=== PATIENT | female | born 1995 | race Caucasian/White ===

== ENCOUNTER 2017-04-10 17:14 | Emergency (ER) | payer BC ==
[2017-04-10 17:46] LABS: URINE APPEARANCE CLEAR; URINE BILIRUBIN NEGATIVE (NEGATIVE); URINE BLOOD NEGATIVE (NEGATIVE); URINE COLOR YELLOW; URINE GLUCOSE (UA) NEGATIVE (NEGATIVE); URINE KETONE NEGATIVE (NEGATIVE); URINE LEUKOCYTE ESTERASE NEGATIVE (NEGATIVE); URINE NITRITE NEGATIVE (NEGATIVE); URINE PROTEIN NEGATIVE (NEGATIVE); URINE UROBILINOGEN 0.2 E.U./dL (0.20 - 1.00)
--- NOTE | 2017-04-10 17:50 | Emergency Department Record ---
History of Present Illness - General Chief complaint: Female Urogenital Problem Stated complaint: THINKS SHE HAS VAGINAL INFECTION Time Seen by Provider: 04/10/17 17:44 Source: Patient Mode of Arrival: Ambulatory - History of Present Illness Initial comments: The patient complains of two days of vaginal discomfort, similar to when she had BV in the past. She states her vaginal is sore and has a foul odor. She is monogamous with her . No other STD history, no f,c,back pain. Slight abdominal discomfort intermittently. Onset/Timin -: Days(s) Severity: Mild Severity scale (1-10): 7 Quality: Burning, Cramping Consistency: Constant Improves with: Urination Worsens with: Bathing Patient : No LMP Date: 04/03/17 Gestational Age (wks) based on LMP: 1 - Related Data Sexually active: Yes Previous Rx's Medication Instructions Recorded Metronidazole [Flagyl] 500 mg PO BID #13 tablet 04/10/17 Allergies Allergy/AdvReac Type Severity Reaction Status Date / Time No Known Drug Allergies Allergy Verified 04/10/17 17:26 Travel Screening - Travel/Exposure Within Last 30 Days Have you traveled within the last 30 days?: No - Travel/Exposure Within Last Year Have you traveled outside the [place] in the last year?: No - Additonal Travel Details Have you been exposed to anyone with a communicable illness?: No - Travel Symptoms Symptom Screening: None Review of Systems Reviewed: No additional complaints except as noted below Constitutional: Reports: As per HPI. Denies: Chills, Fever, Malaise, Night sweats, Weakness, Weight change Eyes: Reports: As per HPI. Denies: Eye discharge, Eye pain, Photophobia, Vision change ENT: Reports: As per HPI. Denies: Congestion, Dental pain, Ear pain, Epistaxis , Hearing loss, Throat pain Respiratory: Reports: As per HPI. Denies: Cough, Dyspnea, Hemoptysis, Stridor, Wheezes Cardiovascular: Reports: As per HPI. Denies: Arrhythmia, Chest pain, Dyspnea on exertion, Edema, Murmurs, Orthopnea, Palpitations, Paroxysmal nocturnal dyspnea, Rheumatic Fever, Syncope Endocrine: Reports: As per HPI. Denies: Fatigue, Heat or cold intolerance, Polydipsia, Polyuria Gastrointestinal: Reports: As per HPI. Denies: Abdominal pain, Constipation, Diarrhea, Hematemesis, Hematochezia, Melena, Nausea, Vomiting Genitourinary: Reports: As per HPI. Denies: Abnormal menses, Discharge, Dyspareunia, Dysuria, Frequency, Hematuria, Incontinence, Retention, Urgency Musculoskeletal: Reports: As per HPI. Denies: Arthralgia, Back pain, Gout, Joint swelling, Myalgia, Neck pain Skin: Reports: As per HPI. Denies: Bruising, Change in color, Change in hair/ nails, Lesions, Pruritus, Rash Neurological: Reports: As per HPI. Denies: Abnormal gait, Confusion, Headache, Numbness, Paresthesias, Seizure, Tingling, Tremors, Vertigo, Weakness Psychiatric: Reports: As per HPI. Denies: Anxiety, Auditory hallucinations, Depression, Homicidal thoughts, Suicidal thoughts, Visual hallucinations Hematological/Lymphatic: Reports: As per HPI. Denies: Anemia, Blood Clots, Easy bleeding, Easy bruising, Swollen glands Past Medical History - SOCIAL HISTORY Smoking Status: Never smoker Alcohol Use: Rare Drug Use: None - RESPIRATORY Hx Respiratory Disorders: No - CARDIOVASCULAR Hx Cardio Disorders: No - NEURO Hx Neuro Disorders: No - GI Hx GI Disorders: No - Hx Genitourinary Disorders: No - ENDOCRINE Hx Endocrine Disorders: No - MUSCULOSKELETAL Hx Musculoskeletal Disorders: No - PSYCH Hx Psych Problems: No - HEMATOLOGY/ONCOLOGY Hx Hematology/Oncology Disorders: No Family Medical History Any Significant Family History?: No Physical Exam - General General Appearance: Alert, Oriented x3, Cooperative, No acute distress - Head Head exam: Normal inspection - Eye Eye exam: Normal appearance, PERRL Pupils: Normal accommodation - ENT ENT exam: Normal exam, Mucous membranes moist, Normal external ear exam, Normal orophraynx, TM's normal bilaterally Ear exam: Normal external inspection. negative: External canal tenderness Nasal Exam: Normal inspection. negative: Discharge, Sinus tenderness Mouth exam: Normal external inspection, Tongue normal Teeth exam: Normal inspection. negative: Dental caries Throat exam: Normal inspection. negative: Tonsillar erythema, Tonsillar exudate - Neck Neck exam: Normal inspection, Full ROM. negative: Tenderness - Respiratory Respiratory exam: Normal lung sounds bilaterally. negative: Respiratory distress - Cardiovascular Cardiovascular Exam: Regular rate, Normal rhythm, Normal heart sounds - GI/Abdominal GI/Abdominal exam: Soft, Normal bowel sounds. negative: Tenderness - Rectal Rectal exam: Deferred - exam: Adnexal tenderness (L) (mild), Normal external exam (with a few chronic tiny warts), Normal speculum exam, Vaginal erythema. negative: Cervical discharge, cervical motion tenderness, Vaginal bleeding - Extremities Extremities exam: Normal inspection, Full ROM, Normal capillary refill. negative: Tenderness - Back Back exam: Reports: Normal inspection, Full ROM. Denies: Muscle spasm, Rash noted, Tenderness - Neurological Neurological exam: Alert, Normal gait, Oriented X3, Reflexes normal - Psychiatric Psychiatric exam: Normal affect, Normal mood - Skin Skin exam: Dry, Intact, Normal color, Warm Course Vital Signs 04/10/17 17:18 Temperature 98.3 F Pulse Rate 85 Respiratory 16 Rate Blood Pressure 132/84 Pulse Ox 98 Medical Decision Making - Data Complexity MDM Data: Labs Ordered and/or Reviewed (+clue cells, UA neg, HCG neg.) Disposition Disposition: Discharge Clinical Impression: Vaginitis Qualifiers: Chronicity: acute Qualified Code(s): N76.0 - Acute vaginitis Disposition: Home, Self-Care Condition: (1) Good Instructions: Bacterial Vaginosis (ED) Additional Instructions: Flagyl 500 mg twice daily for 7 days. No alcohol with this medicine. Follow up with PCP after completion of antibiotics for recheck. Prescriptions: Metronidazole [Flagyl] 500 mg PO BID #13 tablet Quality - Quality Measures Quality Measures: N/A - Blood Pressure Screening Does Patient Have Any of the Following: No Blood Pressure Classification: Pre-Hypertensive BP Reading Systolic Measurement: 132 Diastolic Measurement: 84 Screening for High Blood Pressure: < Pre-Hypertensive BP, F/U Documented > [ G8950] Pre-Hypertensive Follow-up Interventions: Follow-up with rescreen every year.
[2017-04-10 17:56] LABS: HCG,QUALITATIVE URINE NEGATIVE (NEGATIVE)
[2017-04-10] MEDS ORDERED: CEFTRIAXONE 250 MG VIAL IM ONE (18:47)
[2017-04-10] MEDS ORDERED: METRONIDAZOLE 250 MG TABLET PO ONE (18:47)
[2017-04-10] MEDS ORDERED: AZITHROMYCIN 500 MG TABLET PO ONE (18:47)
[2017-04-11 01:14] LABS: GC SPECIMEN TYPE Vaginal
== END 2017-04-10 19:27 | disposition home or self-care (01) ==
LOC: ER 17:14
DX: N76.0 Acute vaginitis (principal)
CPT/HCPCS: 81003; 81025; 87210; 96372; 99284

== ENCOUNTER 2018-02-19 18:12 | Emergency (ER) | payer BC ==
[2018-02-19] MEDS ORDERED: OFLOXACIN 0.3% 5 ML OPTH SOLN OPTH ONE (18:35)
--- NOTE | 2018-02-19 18:35 | Emergency Department Record ---
History of Present Illness - General Chief complaint: Eye Problem Stated complaint: THINKS SHE HAS PINK EYE Time Seen by Provider: 02/19/18 18:29 Source: Patient Mode of Arrival: Ambulatory Limitations: No limitations - History of Present Illness Initial comments: Pt with 2 days of red itching swollen eye. No contacts, no eye mackup, no trauma, no pain, no vision change. No exposure to kids or infection. Onset/Timin -: Days(s) Onset Description: Gradual, Awoke with symptoms, Other Location: Left eye Eye Symptoms: Burning, Itching Consistency: Constant Treatments Prior to Arrival: OTC eye drops - Related Data Visual acuity (L) = 20/: 25 Visual acuity (R) = 20/: 25 Home Medications Medication Instructions Recorded Confirmed Last Taken No Home Med [NO HOME MEDS] 02/19/18 02/19/18 Unknown Allergies Allergy/AdvReac Type Severity Reaction Status Date / Time No Known Drug Allergies Allergy Verified 02/19/18 18:23 Travel Screening - Travel/Exposure Within Last 30 Days Have you traveled within the last 30 days?: No - Travel/Exposure Within Last Year Have you traveled outside the [place] in the last year?: No - Additonal Travel Details Have you been exposed to anyone with a communicable illness?: No - Travel Symptoms Symptom Screening: None Review of Systems Constitutional: Denies: Chills, Fever Eyes: Reports: As per HPI. Denies: Photophobia, Vision change ENT: Denies: Congestion, Dental pain Respiratory: Denies: Cough, Dyspnea Cardiovascular: Denies: Arrhythmia Endocrine: Denies: Fatigue Gastrointestinal: Denies: Abdominal pain Skin: Denies: Bruising, Rash Neurological: Denies: Abnormal gait, Headache, Vertigo Psychiatric: Denies: Anxiety Hematological/Lymphatic: Denies: Anemia Past Medical History - SOCIAL HISTORY Smoking Status: Current every day smoker Alcohol Use: Rare Drug Use: None - RESPIRATORY Hx Respiratory Disorders: No - CARDIOVASCULAR Hx Cardio Disorders: No - NEURO Hx Neuro Disorders: No - GI Hx GI Disorders: No - Hx Genitourinary Disorders: No - ENDOCRINE Hx Endocrine Disorders: No - MUSCULOSKELETAL Hx Musculoskeletal Disorders: No - PSYCH Hx Psych Problems: No - HEMATOLOGY/ONCOLOGY Hx Hematology/Oncology Disorders: No Family Medical History Any Significant Family History?: No Physical Exam - General General Appearance: Alert, Oriented x3, Cooperative, No acute distress - Head Head exam: Atraumatic - Eye Eye exam: PERRL, Conjunctival injection, EOMI. negative: Nystagmus, Periorbital swelling, Periorbital tenderness, Scleral icterus (no crusting. Anterior chamber clear, no pain with exam light. ) - ENT ENT exam: Normal exam, Mucous membranes moist, Normal external ear exam, Normal orophraynx, TM's normal bilaterally - Neck Neck exam: Normal inspection, Full ROM. negative: Tenderness - Respiratory Respiratory exam: Normal lung sounds bilaterally. negative: Respiratory distress - Cardiovascular Cardiovascular Exam: Regular rate, Normal rhythm. negative: Tachycardia - GI/Abdominal GI/Abdominal exam: Soft, Normal bowel sounds. negative: Tenderness - Extremities Extremities exam: Normal inspection - Back Back exam: Reports: Normal inspection - Neurological Neurological exam: Alert, Normal gait, Oriented X3 - Psychiatric Psychiatric exam: Normal affect - Skin Skin exam: Normal color. negative: Rash Course Vital Signs 02/19/18 18:15 Temperature 98.5 F Pulse Rate 81 Respiratory 16 Rate Blood Pressure 137/82 Pulse Ox 100 - Reevaluation(s) Reevaluation #1: 02/19/18 18:41 20/25 vision OS and OD. No trauma. Discussed plan. agrees. Disposition Disposition: Discharge Clinical Impression: Conjunctivitis Disposition: Home, Self-Care Condition: (1) Good Instructions: Conjunctivitis (ED) Additional Instructions: Use Tobramcyin eye drops 2 drops every 4 hours while awake until clear. Caution with hand washing and contacts. Quality - Quality Measures Quality Measures: N/A - Blood Pressure Screening Does Patient Have Any of the Following: No Blood Pressure Classification: Pre-Hypertensive BP Reading Systolic Measurement: 137 Diastolic Measurement: 82 Screening for High Blood Pressure: < Pre-Hypertensive BP, F/U Documented > [ G8950] Pre-Hypertensive Follow-up Interventions: Follow-up with rescreen every year.
== END 2018-02-19 18:49 | disposition home or self-care (01) ==
LOC: ER 18:12
DX: H10.32 Unspecified acute conjunctivitis, left eye (principal); F17.210 Nicotine dependence, cigarettes, uncomplicated
CPT/HCPCS: 99282

== ENCOUNTER 2018-02-21 10:09 | Emergency (ER) | payer BC ==
--- NOTE | 2018-02-21 10:38 | Emergency Department Record ---
History of Present Illness - General Chief complaint: Eye Problem Stated complaint: EYE INFECTION Time Seen by Provider: 02/21/18 10:21 Source: Patient, RN notes reviewed Mode of Arrival: Ambulatory - History of Present Illness Initial comments: rechecked the viual acuity of the left eye and it was 20/25 with two mistakes, redness of conjunctivea and upper eyelid is swollen and PERRLA EOMI eye discharge and she is on ofloxacin 2 drops every 4 hours for 2 days . No contact lense use Onset/Timin -: Days(s) Location: Left eye Place: Home If Injury: None Eye Symptoms: Blurry vision, Redness Severity: Mild Associated Symptoms: None Treatments Prior to Arrival: None - Related Data Visual acuity (L) = 20/: 50 Visual acuity (R) = 20/: 20 With correction: No Home Medications Medication Instructions Recorded Confirmed Last Taken Ofloxacin 5 ml OT Q4H 02/21/18 02/21/18 Unknown Previous Rx's Medication Instructions Recorded Sulfacetamide Sodium [Bleph-10] 1 - 2 drop AFFEYE QID #5 ml 02/21/18 Allergies Allergy/AdvReac Type Severity Reaction Status Date / Time No Known Drug Allergies Allergy Verified 02/21/18 10:17 Travel Screening - Travel/Exposure Within Last 30 Days Have you traveled within the last 30 days?: No Review of Systems Reviewed: No additional complaints except as noted below Constitutional: Reports: As per HPI. Denies: Chills, Fever, Malaise, Night sweats, Weakness, Weight change Eyes: Reports: As per HPI, Eye discharge. Denies: Eye pain, Photophobia, Vision change ENT: Reports: As per HPI. Denies: Congestion, Dental pain, Ear pain, Epistaxis , Hearing loss, Throat pain Respiratory: Reports: As per HPI. Denies: Cough, Dyspnea, Hemoptysis, Stridor, Wheezes Cardiovascular: Reports: As per HPI. Denies: Arrhythmia, Chest pain, Dyspnea on exertion, Edema, Murmurs, Orthopnea, Palpitations, Paroxysmal nocturnal dyspnea, Rheumatic Fever, Syncope Endocrine: Reports: As per HPI. Denies: Fatigue, Heat or cold intolerance, Polydipsia, Polyuria Gastrointestinal: Reports: As per HPI. Denies: Abdominal pain, Constipation, Diarrhea, Hematemesis, Hematochezia, Melena, Nausea, Vomiting Genitourinary: Reports: As per HPI. Denies: Abnormal menses, Discharge, Dyspareunia, Dysuria, Frequency, Hematuria, Incontinence, Retention, Urgency Musculoskeletal: Reports: As per HPI. Denies: Arthralgia, Back pain, Gout, Joint swelling, Myalgia, Neck pain Skin: Reports: As per HPI. Denies: Bruising, Change in color, Change in hair/ nails, Lesions, Pruritus, Rash Neurological: Reports: As per HPI. Denies: Abnormal gait, Confusion, Headache, Numbness, Paresthesias, Seizure, Tingling, Tremors, Vertigo, Weakness Psychiatric: Reports: As per HPI. Denies: Anxiety, Auditory hallucinations, Depression, Homicidal thoughts, Suicidal thoughts, Visual hallucinations Hematological/Lymphatic: Reports: As per HPI. Denies: Anemia, Blood Clots, Easy bleeding, Easy bruising, Swollen glands Past Medical History - SOCIAL HISTORY Smoking Status: Current every day smoker Alcohol Use: None Drug Use: None - RESPIRATORY Hx Respiratory Disorders: No - CARDIOVASCULAR Hx Cardio Disorders: No - NEURO Hx Neuro Disorders: No - GI Hx GI Disorders: No - Hx Genitourinary Disorders: No - ENDOCRINE Hx Endocrine Disorders: No - MUSCULOSKELETAL Hx Musculoskeletal Disorders: No - PSYCH Hx Psych Problems: No - HEMATOLOGY/ONCOLOGY Hx Hematology/Oncology Disorders: No Family Medical History Any Significant Family History?: No Physical Exam - General General Appearance: Alert, Oriented x3, Cooperative, No acute distress - Head Head exam: Normal inspection - Eye Eye exam: PERRL, Conjunctival injection, Periorbital swelling Pupils: Normal accommodation Visual acuity (L) = 20/: 25 With correction: No - ENT ENT exam: Normal exam, Mucous membranes moist, Normal external ear exam, Normal orophraynx, TM's normal bilaterally Ear exam: Normal external inspection. negative: External canal tenderness Nasal Exam: Normal inspection. negative: Discharge, Sinus tenderness Mouth exam: Normal external inspection, Tongue normal Teeth exam: Normal inspection. negative: Dental caries Throat exam: Normal inspection. negative: Tonsillar erythema, Tonsillar exudate - Neck Neck exam: Normal inspection, Full ROM. negative: Tenderness - Respiratory Respiratory exam: Normal lung sounds bilaterally. negative: Respiratory distress - Cardiovascular Cardiovascular Exam: Regular rate, Normal rhythm, Normal heart sounds - GI/Abdominal GI/Abdominal exam: Soft, Normal bowel sounds. negative: Tenderness - Rectal Rectal exam: Deferred - exam: Deferred - Extremities Extremities exam: Normal inspection, Full ROM, Normal capillary refill. negative: Tenderness - Back Back exam: Reports: Normal inspection, Full ROM. Denies: Muscle spasm, Rash noted, Tenderness - Neurological Neurological exam: Alert, Normal gait, Oriented X3, Reflexes normal - Psychiatric Psychiatric exam: Normal affect, Normal mood - Skin Skin exam: Dry, Intact, Normal color, Warm Course Vital Signs 02/21/18 10:13 Temperature 98.7 F Pulse Rate 97 H Respiratory 18 Rate Blood Pressure 115/75 Pulse Ox 98 Disposition Clinical Impression: Conjunctivitis Qualifiers: Conjunctivitis type: acute Acute conjunctivitis type: bacterial Laterality: left Qualified Code(s): H10.32 - Unspecified acute conjunctivitis, left eye Disposition: Home, Self-Care Condition: (1) Good Additional Instructions: warm compresses four times aday follow up with Dr Hernández call his office tomorrow for evaluation [phone] Prescriptions: Sulfacetamide Sodium [Bleph-10] 1 - 2 drop AFFEYE QID #5 ml Time of Disposition: 10:45 Quality - Quality Measures Quality Measures: N/A - Blood Pressure Screening Does Patient Have Any of the Following: No Blood Pressure Classification: Normal BP Reading Systolic Measurement: 115 Diastolic Measurement: 75 Screening for High Blood Pressure: < Normal BP, F/U Not Required > [G8783]
== END 2018-02-21 10:51 | disposition home or self-care (01) ==
LOC: ER 10:09
DX: H10.32 Unspecified acute conjunctivitis, left eye (principal); F17.210 Nicotine dependence, cigarettes, uncomplicated
CPT/HCPCS: 99282

== ENCOUNTER 2018-12-06 19:54 | Emergency (ER) | payer BC ==
[2018-12-06] MEDS ORDERED: KETOROLAC 30 MG/ML VIAL IVP ONE (20:22)
--- NOTE | 2018-12-06 20:26 | Emergency Department Record ---
History of Present Illness - General Chief Complaint: Abdominal Pain Stated Complaint: ABD PAIN Time Seen by Provider: 12/06/18 19:57 Source: Patient Mode of Arrival: Ambulatory Limitations: No limitations - History of Present Illness Initial Comments: 23 yo female presents to ED for evaluation of diffuse abdominal pain symptoms that began 2 days ago with the onset of her menses. Jonna reports that she saw her PCP diane for her symptoms, underwent pelvic examination and was referred to the ED for possible "uterine infection". Patient denies fevers, chills, nausea, vomiting, or change in stools. Patient is currently on her menses at this time, reports pain with tampon use this afternoon, denies vaginal discharge symptoms. Patient is sexually active in a monogamous relationship. Patient denies health problems at her baseline. MD Complaint: Abdominal pain Onset/Timin -: Days(s) Location: Diffuse Radiation: None Migration to: No migration Severity: Moderate Severity scale (1-10): 6 Quality: Stabbing Consistency: Constant Improves With: Other Worsens With: Other Associated Symptoms: Denies other symptoms - Related Data LMP (females 10-50): This week Home Medications Medication Instructions Recorded Confirmed Last Taken No Home Med [NO HOME MEDS] 12/06/18 12/06/18 Unknown Allergies Allergy/AdvReac Type Severity Reaction Status Date / Time No Known Drug Allergies Allergy Verified 02/21/18 10:17 Travel Screening - Travel/Exposure Within Last 30 Days Have you traveled within the last 30 days?: No - Travel/Exposure Within Last Year Have you traveled outside the [place] in the last year?: No - Additonal Travel Details Have you been exposed to anyone with a communicable illness?: No - Travel Symptoms Symptom Screening: None Review of Systems Constitutional: Denies: Chills, Fever, Malaise, Night sweats Eyes: Denies: Eye discharge, Eye pain ENT: Denies: Congestion, Ear pain, Epistaxis Respiratory: Denies: Cough, Dyspnea Cardiovascular: Denies: Chest pain, Dyspnea on exertion Endocrine: Denies: Fatigue, Heat or cold intolerance Gastrointestinal: Reports: Abdominal pain. Denies: Nausea, Vomiting Genitourinary: Denies: Incontinence, Retention Musculoskeletal: Denies: Arthralgia, Back pain Skin: Denies: Bruising, Change in color Neurological: Denies: Abnormal gait, Confusion, Headache, Seizure Psychiatric: Denies: Anxiety Hematological/Lymphatic: Denies: Anemia, Blood Clots Past Medical History - SOCIAL HISTORY Smoking Status: Current every day smoker - RESPIRATORY Hx Respiratory Disorders: No - CARDIOVASCULAR Hx Cardio Disorders: No - NEURO Hx Neuro Disorders: No - GI Hx GI Disorders: No - Hx Genitourinary Disorders: No - ENDOCRINE Hx Endocrine Disorders: No - MUSCULOSKELETAL Hx Musculoskeletal Disorders: No - PSYCH Hx Psych Problems: No - HEMATOLOGY/ONCOLOGY Hx Hematology/Oncology Disorders: No Family Medical History Any Significant Family History?: No Physical Exam - General General Appearance: Alert, Oriented x3, Cooperative, Moderate distress, Other (Appears to be resting comfortably, pain increases with palpation of the abdomen.) Limitations: No limitations - Head Head exam: Atraumatic, Normocephalic, Normal inspection Head exam detail: negative: Abrasion, Contusion, Burt's sign, General tenderness, Hematoma, Laceration - Eye Eye exam: Normal appearance. negative: Conjunctival injection, Periorbital swelling, Periorbital tenderness, Scleral icterus - ENT Ear exam: negative: Auricular hematoma, Auricular trauma Nasal Exam: negative: Active bleeding, Discharge, Dried blood, Foreign body Mouth exam: negative: Drooling, Laceration, Muffled voice, Tongue elevation - Neck Neck exam: Normal inspection. negative: Meningismus, Tenderness - Respiratory Respiratory exam: Normal lung sounds bilaterally. negative: Rales, Respiratory distress, Rhonchi, Stridor - Cardiovascular Cardiovascular Exam: Regular rate, Normal rhythm, Normal heart sounds - GI/Abdominal GI/Abdominal exam: Soft, Tenderness (Diffuse TTP on examination, no rebound, no guarding symptoms are present.). negative: Rebound, Rigid - Rectal Rectal exam: Deferred - exam: Deferred - Extremities Extremities exam: Normal inspection. negative: Pedal edema, Tenderness - Back Back exam: Denies: CVA tenderness (R), CVA tenderness (L) - Neurological Neurological exam: Alert, Normal gait, Oriented X3 - Psychiatric Psychiatric exam: Normal affect, Normal mood - Skin Skin exam: Normal color. negative: Abrasion Type of lesion: negative: abrasion Course Vital Signs 12/06/18 20:00 Temperature 99.0 F Pulse Rate 88 Respiratory 18 Rate Blood Pressure 127/108 Pulse Ox 98 - Reevaluation(s) Reevaluation #1: 12/06/18 21:16 Laboratory studies were reviewed and appear grossly unremarkable for an acute process. CT Abdomen and Pelvis with IV Contrast: No acute process 1 mm non-obstructing calculus right kidney Normal appendix Patient was updated on all results, reports that she is resting comfortably at this time. Discussed transfer for pelvic US tonight, patient declined stating that she would prefer to return in the morning for pelvic US. Patient denies any abnormal vaginal discharge symptoms, no clinical evidence for endometritis or TOA based on the patient's history, examination, and testing performed in the ED this evening. No clinical evidence for ovarian torsion on examination as well. Patient declined pelvic examination at this time given recent pelvic exam 4 days ago and the absence of PID symptoms. Patient will return to ED tomorrow morning for US examination of the pelvis. Medical Decision Making - Lab Data Result diagrams: 12/06/18 20:30 12/06/18 20:30 Disposition Disposition: Discharge Clinical Impression: Abdominal pain Qualifiers: Abdominal location: unspecified location Qualified Code(s): R10.9 - Unspecified abdominal pain Disposition: Home, Self-Care Condition: (2) Stable Instructions: Abdominal Pain (ED) Additional Instructions: Return to ED by 6:45 tomorrow morning for US evaluation of the pelvis. Levsin as directed. Follow-up with your family doctor in 3-5 days as directed. Forms: Patient Portal Access Time of Disposition: 21:27 Quality - Quality Measures Quality Measures: N/A - Blood Pressure Screening Does Patient Have Any of the Following: No Blood Pressure Classification: Hypertensive Reading Systolic Measurement: 127 Diastolic Measurement: 108 Screening for High Blood Pressure: < First Hypertensive BP, F/U Documented > [G8950] First Hypertensive Follow-up Interventions: Referral to alternative/primary care provider.
[2018-12-06] MEDS ORDERED: 0.9 % SODIUM CHLORIDE 1000ML 1,000 ML IV SCH (20:30)
[2018-12-06 20:48] LABS: ABSOLUTE NEUTROPHIL COUNT 4.42; BASO % 0.2 % (0-6); EOS % 3.2 % (0-6); GRAN % 53.8 % (47-80); HEMATOCRIT 37.4 % (35.0-47.0); HEMOGLOBIN 12.6 gm/dl (11.6-16.0); LYMPH % 35.9 % (16-45); MEAN CELL VOLUME 89.5 fl (81-97); MEAN CORPUSCULAR HEMOGLOBIN 30.1 pg (27-33); MEAN CORPUSCULAR HGB CONC 33.7 g/dl (32-36); MONO % 6.9 % (0-9); PLATELET COUNT 291 K/uL (130-400); RED BLOOD COUNT 4.18 M/uL (3.80-5.40); RED CELL DISTRIBUTION WIDTH 12.3 % (11.5-14.5); WHITE BLOOD COUNT W/O DIFF 8.2 K/uL (4.2-12.2)
[2018-12-06 20:56] LABS: URINE APPEARANCE CLEAR; URINE BILIRUBIN NEGATIVE (NEGATIVE); URINE BLOOD MODERATE (NEGATIVE); URINE COLOR YELLOW; URINE GLUCOSE (UA) NEGATIVE (NEGATIVE); URINE KETONE NEGATIVE (NEGATIVE); URINE LEUKOCYTE ESTERASE NEGATIVE (NEGATIVE); URINE NITRITE NEGATIVE (NEGATIVE); URINE PROTEIN NEGATIVE (NEGATIVE)
[2018-12-06 21:04] LABS: HCG,QUALITATIVE URINE NEGATIVE (NEGATIVE); URINE WBC NONE SEEN (0-2/hpf)
[2018-12-06 21:07] LABS: BLOOD UREA NITROGEN 12 mg/dL (6-20); CREATININE 0.6 mg/dL (0.5-0.9); EST GLOMERULAR FILTRATION RATE > 60 mL/min
[2018-12-06 21:08] LABS: LIPASE 21 U/L (13-60); TOTAL PROTEIN 6.6 g/dL (6.6-8.7)
[2018-12-06 21:10] LABS: GLUCOSE,RANDOM 101 mg/dL (74-109)
[2018-12-06 21:13] LABS: ALB/GLOB RATIO 1.9 (1.1-1.8); ALBUMIN 4.3 g/dL (4.0-5.0); ALKALINE PHOSPHATASE 71 U/L (35-104); ALT/SGPT 10 U/L (<33); AST/SGOT 10 U/L (10.0-35.0)
[2018-12-06] MEDS ORDERED: HYOSCYAMINE SULFATE ODT 0.125 MG TAB.SUBL SL ONE (21:27)
--- NOTE | 2018-12-07 13:37 | CT SCAN REPORT ---
EXAM: CT SCAN OF THE ABDOMEN AND PELVIS WITH CONTRAST HISTORY: MID TO LOWER ABDOMINAL PAIN FOR THE PAST TWO DAYS. TECHNIQUE: Standard CT imaging of the abdomen and pelvis was performed with intravenous contrast. 100 ml of Omnipaque 300 were administered. Additional coronal and sagittal reformatted images were also performed. Comparison: None. FINDINGS: The lung bases are clear. The liver, gallbladder, biliary tree, pancreas, spleen, and adrenal glands are normal. There are two tiny cortical cysts within the right kidney. A 1 mm punctate nonobstructing stone is present at the lower pole of the right kidney. There is no obstructing calculus or hydronephrosis. The kidneys and ureters are otherwise normal. The aorta is normal in caliber. There is no retroperitoneal lymphadenopathy. The large and small bowel loops including the appendix are normal. The stomach is unremarkable. There is no pneumoperitoneum or ascites. Small functional follicles are present within both ovaries. There is no adnexal mass. The uterus is unremarkable. The urinary bladder is normal. The abdominal wall and skeletal structures are normal. IMPRESSION: 1. NO ACUTE INTRAABDOMINAL PATHOLOGY. THE APPENDIX IS NORMAL. 2. 1 MM NONOBSTRUCTING STONE AT THE INFERIOR POLE OF THE RIGHT KIDNEY. 3. TINY CORTICAL CYSTS WITHIN THE RIGHT KIDNEY. JOB NUMBER: [id number] MTDD
== END 2018-12-06 21:39 | disposition home or self-care (01) ==
LOC: ER 19:54
DX: R10.9 Unspecified abdominal pain (principal); N20.0 Calculus of kidney
CPT/HCPCS: 99285; 96374; 99284; 83690; 85025; 80053; 81001; 81025; 74177; Q9967; J1980; J1885; J7030

== ENCOUNTER 2018-12-07 06:43 | Emergency (ER) | payer BC ==
--- NOTE | 2018-12-07 06:55 | Emergency Department Record ---
History of Present Illness - General Chief Complaint: Abdominal Pain Stated Complaint: ABD PAIN, ULTRASOUND Time Seen by Provider: 12/07/18 06:45 Source: Patient Mode of Arrival: Ambulatory Limitations: No limitations - History of Present Illness Initial Comments: 23 yo female presents to ED for re-evaluation of diffuse abdominal pain symptoms for the past 2-3 days. Patient was seen and evaluated last evening, laboratory studies and CT Abdomen and Pelvis were grossly unremarkable for an acute process, patient was asked to return to the ED for US evaluation this morning. Patient denies fevers, chills, nausea, vomiting, or change in stools. Patient does report that she is currently on her menses. MD Complaint: Abdominal pain Onset/Timin -: Days(s) Location: Diffuse Radiation: None Migration to: No migration Severity: Moderate Quality: Aching Consistency: Constant Improves With: Nothing Worsens With: Nothing Associated Symptoms: Denies other symptoms - Related Data Patient : No Allergies Allergy/AdvReac Type Severity Reaction Status Date / Time No Known Drug Allergies Allergy Verified 02/21/18 10:17 Review of Systems Constitutional: Denies: Chills, Fever, Malaise, Night sweats Eyes: Denies: Eye discharge, Eye pain ENT: Denies: Congestion, Ear pain, Epistaxis Respiratory: Denies: Cough, Dyspnea Cardiovascular: Denies: Chest pain, Dyspnea on exertion Endocrine: Denies: Fatigue, Heat or cold intolerance Gastrointestinal: Reports: Abdominal pain. Denies: Nausea, Vomiting Genitourinary: Denies: Incontinence, Retention Musculoskeletal: Denies: Arthralgia, Back pain Skin: Denies: Bruising, Change in color Neurological: Denies: Abnormal gait, Confusion, Headache, Seizure Psychiatric: Denies: Anxiety Hematological/Lymphatic: Denies: Anemia, Blood Clots Past Medical History - SOCIAL HISTORY Smoking Status: Current every day smoker - RESPIRATORY Hx Respiratory Disorders: No - CARDIOVASCULAR Hx Cardio Disorders: No - NEURO Hx Neuro Disorders: No - GI Hx GI Disorders: No - Hx Genitourinary Disorders: No - ENDOCRINE Hx Endocrine Disorders: No - MUSCULOSKELETAL Hx Musculoskeletal Disorders: No - PSYCH Hx Psych Problems: No - HEMATOLOGY/ONCOLOGY Hx Hematology/Oncology Disorders: No Physical Exam - General General Appearance: Alert, Oriented x3, Cooperative, Mild distress Limitations: No limitations - Head Head exam: Atraumatic, Normocephalic, Normal inspection Head exam detail: negative: Abrasion, Contusion, Burt's sign, General tenderness, Hematoma, Laceration - Eye Eye exam: Normal appearance. negative: Conjunctival injection, Periorbital swelling, Periorbital tenderness, Scleral icterus - ENT Ear exam: negative: Auricular hematoma, Auricular trauma Nasal Exam: negative: Active bleeding, Discharge, Dried blood, Foreign body Mouth exam: negative: Drooling, Laceration, Muffled voice, Tongue elevation - Neck Neck exam: Normal inspection. negative: Meningismus, Tenderness - Respiratory Respiratory exam: Normal lung sounds bilaterally. negative: Rales, Respiratory distress, Rhonchi, Stridor - Cardiovascular Cardiovascular Exam: Regular rate, Normal rhythm, Normal heart sounds - GI/Abdominal GI/Abdominal exam: Soft, Tenderness (MIld, diffuse TTP on examination, no rebound or guarding symptoms are present on examination.). negative: Rebound, Rigid - Rectal Rectal exam: Deferred - exam: Deferred - Extremities Extremities exam: Normal inspection. negative: Pedal edema, Tenderness - Back Back exam: Denies: CVA tenderness (R), CVA tenderness (L) - Neurological Neurological exam: Alert, Normal gait, Oriented X3 - Psychiatric Psychiatric exam: Normal affect, Normal mood - Skin Skin exam: Normal color. negative: Abrasion Type of lesion: negative: abrasion Course - Reevaluation(s) Reevaluation #1: 12/07/18 07:05 Case was discussed with oncoming provider, will assume care and disposition of the patient pending US results. Disposition Forms: Patient Portal Access Quality - Quality Measures Quality Measures: N/A - Blood Pressure Screening Does Patient Have Any of the Following: No Blood Pressure Classification: Pre-Hypertensive BP Reading Systolic Measurement: 120 Diastolic Measurement: 79 Screening for High Blood Pressure: < Pre-Hypertensive BP, F/U Documented > [G8950] Pre-Hypertensive Follow-up Interventions: Referral to alternative/primary care provider.
--- NOTE | 2018-12-07 09:42 | Emergency Department Record ---
History of Present Illness - General Chief Complaint: Abdominal Pain Stated Complaint: ABD PAIN, ULTRASOUND Time Seen by Provider: 12/07/18 06:45 Source: Patient Mode of Arrival: Ambulatory Limitations: No limitations - History of Present Illness Initial Comments: Assumed care of this patient from Dr. Jackson for a day shift ultrasound of her abdomen. She has had a full work up of labs and CT scan which were normal, yet continues to have diffuse pain. She tells me the only thing she can think of is that her menstruation is painful and even her tampon is uncomfortable.She also went to [place] yesterday and rode all the fast rides. MD Complaint: Abdominal pain Onset/Timin -: Days(s) Location: Diffuse Radiation: None Migration to: No migration Severity: Moderate Severity scale (1-10): 4 Quality: Aching Consistency: Constant Improves With: Nothing Worsens With: Nothing Associated Symptoms: Denies other symptoms - Related Data LMP (females 10-50): This week Patient : No Previous Rx's Medication Instructions Recorded Levofloxacin [Levaquin] 750 mg PO DAILY #7 tab 12/07/18 Metronidazole [Flagyl] 500 mg PO BID #20 tablet 12/07/18 Allergies Allergy/AdvReac Type Severity Reaction Status Date / Time No Known Drug Allergies Allergy Verified 02/21/18 10:17 Travel Screening - Travel/Exposure Within Last 30 Days Have you traveled within the last 30 days?: No - Travel/Exposure Within Last Year Have you traveled outside the [place] in the last year?: No - Additonal Travel Details Have you been exposed to anyone with a communicable illness?: No - Travel Symptoms Symptom Screening: None Review of Systems Constitutional: Denies: Chills, Fever, Malaise, Night sweats Eyes: Denies: Eye discharge, Eye pain ENT: Denies: Congestion, Ear pain, Epistaxis Respiratory: Denies: Cough, Dyspnea Cardiovascular: Denies: Chest pain, Dyspnea on exertion Endocrine: Denies: Fatigue, Heat or cold intolerance Gastrointestinal: Reports: Abdominal pain. Denies: Nausea, Vomiting Genitourinary: Denies: Incontinence, Retention Musculoskeletal: Denies: Arthralgia, Back pain Skin: Denies: Bruising, Change in color Neurological: Denies: Abnormal gait, Confusion, Headache, Seizure Psychiatric: Denies: Anxiety Hematological/Lymphatic: Denies: Anemia, Blood Clots Past Medical History - SOCIAL HISTORY Smoking Status: Current every day smoker - RESPIRATORY Hx Respiratory Disorders: No - CARDIOVASCULAR Hx Cardio Disorders: No - NEURO Hx Neuro Disorders: No - GI Hx GI Disorders: No - Hx Genitourinary Disorders: No - ENDOCRINE Hx Endocrine Disorders: No - MUSCULOSKELETAL Hx Musculoskeletal Disorders: No - PSYCH Hx Psych Problems: No - HEMATOLOGY/ONCOLOGY Hx Hematology/Oncology Disorders: No Family Medical History Any Significant Family History?: No Physical Exam - General General Appearance: Alert, Oriented x3, Cooperative, No acute distress Limitations: No limitations - Head Head exam: Normal inspection - Eye Eye exam: Normal appearance, PERRL Pupils: Normal accommodation - ENT ENT exam: Normal exam, Mucous membranes moist, Normal external ear exam, Normal orophraynx, TM's normal bilaterally Ear exam: Normal external inspection. negative: External canal tenderness Nasal Exam: Normal inspection. negative: Discharge, Sinus tenderness Mouth exam: Normal external inspection, Tongue normal Teeth exam: Normal inspection. negative: Dental caries Throat exam: Normal inspection. negative: Tonsillar erythema, Tonsillar exudate - Neck Neck exam: Normal inspection, Full ROM. negative: Lymphadenopathy, Meningismus, Tenderness - Respiratory Respiratory exam: Normal lung sounds bilaterally. negative: Respiratory distress - Cardiovascular Cardiovascular Exam: Regular rate, Normal rhythm, Normal heart sounds - GI/Abdominal GI/Abdominal exam: Soft, Normal bowel sounds, Tenderness (difusely tender over epigastrum, mid and lower abdomen on palpation). negative: Rebound, Rigid - Rectal Rectal exam: Deferred - exam: Deferred - Extremities Extremities exam: Normal inspection, Full ROM, Normal capillary refill. negative: Calf tenderness, Pedal edema, Tenderness - Back Back exam: Reports: Normal inspection, Full ROM. Denies: CVA tenderness (R), CVA tenderness (L), Muscle spasm, Rash noted, Tenderness - Neurological Neurological exam: Alert, CN II-XII intact, Normal gait, Oriented X3, Reflexes normal. negative: Motor sensory deficit - Psychiatric Psychiatric exam: Normal affect, Normal mood - Skin Skin exam: Dry, Intact, Normal color, Warm Course Vital Signs 12/07/18 12/07/18 06:45 09:21 Temperature 97.5 F L Pulse Rate 82 Pulse Rate [ 56 L Pulse Ox Probe] Respiratory 18 18 Rate Blood Pressure 120/79 Blood Pressure 106/69 [Left Arm] Pulse Ox 98 98 - Reevaluation(s) Reevaluation #1: Discussed results with Dr. Ireland who states that the pelvix exam she performed in her office on this patient last week suggests endometritis. She requests I prescibe flagyl 500 BId for 10 days, and LEvaquin 750 daily for 7 days. She is to see her in her office in 2-3 days (this week). 12/07/18 11:03 Medical Decision Making - Management Options MDM Management: Additional Work-up Planned (e.g. ADM/Transfer/OP Study) (Follow Up with Dr. Ireland the end of this week, in 2-3 days.) - Data Complexity MDM Data: Labs Ordered and/or Reviewed (reviewed from prior chart), X-Ray Ordered and/or Reviewed (Abdominal ultrasound negative per radiologist.) Disposition Disposition: Discharge Clinical Impression: Endometritis Disposition: Home, Self-Care Condition: (1) Good Instructions: Endometritis (ED) Additional Instructions: Take Flagyl 500 mg BID for 10 days. Take no alcohol with this medicine. Also take Levaquin 750 mg daily for [address] Ireland's office for a recheck appointment at the end of this week, either or Thursday of this week. Continue naprosyn with food as previously directed. May add tylenol as directed every 4 hours if needed for pain. Prescriptions: Metronidazole [Flagyl] 500 mg PO BID #20 tablet Levofloxacin [Levaquin] 750 mg PO DAILY #7 tab Forms: Patient Portal Access Quality - Quality Measures Quality Measures: N/A - Blood Pressure Screening Does Patient Have Any of the Following: No Blood Pressure Classification: Pre-Hypertensive BP Reading Systolic Measurement: 120 Diastolic Measurement: 79 Screening for High Blood Pressure: < Normal BP, F/U Not Required > [G8783]
--- NOTE | 2018-12-08 07:45 | ULTRASOUND REPORT ---
EXAM: ULTRASOUND OF THE ABDOMEN, COMPLETE HISTORY: SUDDEN ONSET OF MID EPIGASTRIC PAIN. TECHNIQUE: Routine ultrasound examination of the abdomen was performed. Comparison: CT of the abdomen and pelvis with contrast dated 12/06/18 at 20:50. FINDINGS: The pancreatic tail is obscured by overlying bowel gas. The remainder of the pancreas is visualized and normal in appearance. The abdominal aorta is without aneurysmal dilatation and the intrahepatic IVC is patent. The liver is homogeneous in echotexture. No intra nor extrahepatic biliary ductal dilatation with the common hepatic duct measuring 2 mm. The gallbladder is normal in appearance and there is a negative sonographic El's sign. The spleen is not enlarged and is homogeneous in echotexture. Screening evaluation of the kidneys does not demonstrate hydronephrosis nor mass with the right kidney measuring 10 cm in length and the left kidney measuring 10 cm in length. IMPRESSION: NEGATIVE SONOGRAPHIC APPEARANCE OF THE ABDOMEN. JOB NUMBER: [id number] MTDD
--- NOTE | 2018-12-08 07:53 | ULTRASOUND REPORT ---
EXAM: ULTRASOUND OF THE PELVIS WITH TRANSVAGINAL IMAGING HISTORY: SEVERE PAIN IN MID ABDOMEN. TECHNIQUE: Transabdominal ultrasound examination of the pelvis was performed. Transvaginal scanning was also performed for further evaluation of the uterus and adnexa. Comparison: CT of the abdomen and pelvis with contrast dated 12/06/18 at 20:56. FINDINGS: TRANSABDOMINAL PELVIC ULTRASOUND: The uterus is normal in position and smoothly marginated. It measures 9.2 x 3.6 x 5.7 cm. No myometrial mass. The endometrium thickness is estimated at 6 mm which is within the limits of normal. The left ovary is visualized and normal in appearance measuring 2.6 x 2.6 x 3.4 cm. The right ovary is visualized and measures 2.4 x 2.1 x 3.7 cm, also appearing normal. Blood flow is demonstrated in each ovary with color Doppler and Duplex Doppler evaluation. Spectral analysis demonstrates arterial waveforms in each ovary. No adnexal mass nor free pelvic fluid. TRANSVAGINAL PELVIC ULTRASOUND: The uterus is barbra in size and smoothly marginated. No myometrial mass. The endometrial thickness of 4 mm is within the limits of normal. Each ovary is visualized and normal in appearance with small follicles scattered in each. The right ovary measures 3.9 x 2.3 x 1.9 cm. The left ovary measures 2.7 x 3.8 x 2.1 cm. Blood flow is demonstrated in each ovary with color Doppler and Duplex Doppler evaluation. Spectral analysis demonstrates venous and arterial waveforms in each ovary. No adnexal mass nor free pelvic fluid. IMPRESSION: NEGATIVE TRANSABDOMINAL AND TRANSVAGINAL SONOGRAPHIC APPEARANCE OF THE PELVIS. JOB NUMBER: [id number] [facility]
== END 2018-12-07 11:19 | disposition home or self-care (01) ==
LOC: ER 06:43
DX: N71.0 Acute inflammatory disease of uterus (principal); F17.210 Nicotine dependence, cigarettes, uncomplicated
CPT/HCPCS: 76700; 76830; 76856; 99283